=== PATIENT | male | born 1995 | race Caucasian/White ===

== ENCOUNTER 2020-02-25 10:52 | Emergency (ER) | payer MEDICAID, SELFPAY ==
--- NOTE | ~2020-02-25 | XR_ITS ---
EXAMINATION: XR chest 2V DATE: 02/25/2020 11:26 INDICATION: Cough TECHNIQUE: PA and lateral views of the chest are obtained. COMPARISON: None available FINDINGS: The lungs are free of acute opacities. There is no pleural effusion or pneumothorax. The ca rdiomediastinal silhouette is normal. The visualized bones and soft tissues are unremarkable. IMPRESSION: 1. No acute cardiopulmonary abnormality. Reviewed, dictated and finalized at location A.
[2020-02-25 11:00] VITALS: BP 130/84; PULSE 92; RESP 16; TEMP 36.9; O2SAT 100
--- NOTE | 2020-02-25 11:33 | ED.URI ---
HPI - URI/Sore Throat General Chief Complaint: Upper Respiratory Infection Stated Complaint: Chest pain/shortness of breath Time Seen by Provider: 02/25/20 11:29 Source: patient and RN notes reviewed Mode of arrival: ambulatory Limitations: no limitations History of Present Illness HPI Narrative: Patient presents today complaining of a 10 to 14-day history of cough that is slightly worse since onset. He also noted rhinorrhea, subjective fever, and congestion initially, but these have resolved.He was initially seen at the [facility] ER 7 to 10 days ago, placed on azithromycin and dexamethasone. States these medications provided no relief. He has tried no [id number] medication for his symptoms. He does report some mild shortness of breath intermittently. No history of asthma or COPD. Patient smokes 0.5 packs/day for the past 14 years. He also smokes marijuana.In the ER he had a COVID-19 test done, and it was negative.He was told by the ER that if his symptoms did not get better, he needed to go to an urgent care. MD elicited complaint: cough Related Data Allergies Allergy/AdvReac Type Severity Reaction Status Date / Time No Known Allergies Allergy Verified 02/25/20 11:15 Review of Systems Review of Systems: Narrative: CONSTITUTIONAL: Denies body aches, fever, chills, or sweats. EYES: Denies visual changes, redness, or discharge. ENT: Denies rhinorrhea, congestion, sore throat, or otalgia. CARDIOVASCULAR: Denies chest pain, palpitations, or edema. RESPIRATORY: +Cough, shortness of breath GASTROINTESTINAL: Denies abdominal pain, nausea, vomiting, or diarrhea. GENITOURINARY: Denies dysuria or hematuria. SKIN: Denies rash, itching, or wounds. MUSCULOSKELETAL: Denies back pain, joint pain, or myalgia. NEUROLOGIC: Denies headache, numbness, tingling, or weakness. PSYCH: Denies depression or anxiety. [facility] Social History Social History (Updated 02/25/20 @ 11:35 by Mariela Rojas, [facility], ) Smoking packs per day: 0.5 Smoking cigarettes per day: 10.0 Years smoked: 14 Smoking pack-years: 7.00 Smoking status: Current every day smoker Substance use: current Substance use type: marijuana Comments At time of signature, I have reviewed and agree with nursing past medical, surgical, social and family history unless otherwise noted. Please see nursing chart for further information. There is no relevant family history pertinent to the presenting complaint Exam Narrative: Exam Narrative: GENERAL: Well-appearing, well-nourished, and in no acute distress. HEAD: Normocephalic, atraumatic. EYES: EOMI. No redness or drainage. Conjunctivae normal. ENT: Mucous membranes pink and moist. Nares clear. No rhinorrhea. TMs normal bilaterally. Throat normal. Uvula midline. NECK: Normal AROM. Supple. No lymphadenopathy. CHEST: No respiratory distress. Slightly diminished in the right lower lobe, otherwise clear. Frequent mild dry cough HEART: Regular rate and rhythm. No murmur appreciated. Normal peripheral pulses. ABDOMEN: Soft, nontender, nondistended, normal active bowel sounds. MUSCULOSKELETAL: No bony tenderness. EXTREMITIES: Normal range of motion. No edema. SKIN: Warm, dry, no rash. Capillary refill normal. Normal skin turgor. NEURO: No focal deficits. Alert and oriented x3. Gait steady. PSYCH: Normal affect. No signs of depression or anxiety. Course Vital Signs Vital signs: Vital Signs Temperature 98.4 F 02/25/20 11:00 Pulse Rate 92 02/25/20 11:00 Respiratory Rate 16 02/25/20 11:00 Blood Pressure 130/84 02/25/20 11:00 Pulse Oximetry 100 02/25/20 11:00 Temperature 98.4 F 02/25/20 11:00 Pulse Rate 92 02/25/20 11:00 Respiratory Rate 16 02/25/20 11:00 Blood Pressure 130/84 02/25/20 11:00 Pulse Oximetry 100 02/25/20 11:00 Reviewed. Pt has been instructed to follow up with his PCP regarding his elevated blood pressure today. MDM - URI/Sore Throat Differential D
== END 2020-02-25 11:45 | disposition home or self-care (01) ==
PROVIDERS: Emergency Provider Nurse Practitioner
DX: J40 Bronchitis, not specified as acute or chronic (principal); F17.210 Nicotine dependence, cigarettes, uncomplicated
CPT/HCPCS: 71046; 99213; G0463

== ENCOUNTER 2020-09-30 12:05 | Emergency (ER) | payer OTHER, SELFPAY ==
[2020-09-30 12:23] VITALS: BP 131/98; PULSE 93; RESP 16; TEMP 36.6; O2SAT 98
--- NOTE | 2020-09-30 13:06 | ED.GENADULT ---
HPI - General Adult General Chief complaint: Unspecified Stated complaint: Std check Time Seen by Provider: 09/30/20 12:48 Source: patient and RN notes reviewed Mode of arrival: ambulatory Limitations: no limitations History of Present Illness HPI narrative: Patient presents today requesting STD testing. States he was told in the last 1 to 2 months that 2 of his partners were positive for gonorrhea, chlamydia, and trichomonas. Until today, he has not sought treatment or testing. He did continue to have unprotected intercourse with other partners. He denies any current symptoms to include penile discharge, dysuria, hematuria, scrotal pain or swelling, rashes or sores. Patient is an abuser and has been for the past approximately 10 years. He shares needles with people that he knows to have hepatitis C and is wondering whether or not he also has hepatitis C. He has just made an appointment with his PCP on Monday to possibly get some blood work done. complaint: STD testing Related Data Allergies Allergy/AdvReac Type Severity Reaction Status Date / Time diphenhydramine Allergy Hives Verified 09/30/20 12:20 [From Vivek] Review of Systems Review of Systems: Narrative: CONSTITUTIONAL: Denies body aches, fever, chills, or sweats. EYES: Denies visual changes, redness, or discharge. ENT: Denies rhinorrhea, congestion, sore throat, or otalgia. CARDIOVASCULAR: Denies chest pain, palpitations, or edema. RESPIRATORY: Denies cough or dyspnea. GASTROINTESTINAL: Denies abdominal pain, nausea, vomiting, or diarrhea. GENITOURINARY: Denies dysuria or hematuria. SKIN: Denies rash, itching, or wounds. MUSCULOSKELETAL: Denies back pain, joint pain, or myalgia. NEUROLOGIC: Denies headache, numbness, tingling, or weakness. PSYCH: Denies depression or anxiety. [facility] Social History Social History (Updated 09/30/20 @ 13:39 by Mariela Rojas, [facility], ) Smoking packs per day: 0.5 Smoking cigarettes per day: 10.0 Years smoked: 14 Smoking pack-years: 7.00 Smoking status: Current every day smoker Substance use: current Substance use type: marijuana and IV drugs Exam Narrative: Exam Narrative: GENERAL: Well-appearing, well-nourished, and in no acute distress. HEAD: Normocephalic, atraumatic. EYES: EOMI. No redness or drainage. Conjunctivae normal. ENT: Mucous membranes pink and moist. NECK: Normal AROM. CHEST: No respiratory distress. : deferred. EXTREMITIES: Normal range of motion. No edema. SKIN: Warm, dry, no rash. Capillary refill normal. Normal skin turgor. NEURO: No focal deficits. Alert and oriented x3. Gait steady. PSYCH: Normal affect. No signs of depression or anxiety. Course Vital Signs Vital signs: Vital Signs Temperature 98 F 09/30/20 12:23 Pulse Rate 93 09/30/20 12:23 Respiratory Rate 16 09/30/20 12:23 Blood Pressure 131/98 H 09/30/20 12:23 Pulse Oximetry 98 09/30/20 12:23 Temperature 98 F 09/30/20 12:23 Pulse Rate 93 09/30/20 12:23 Respiratory Rate 16 09/30/20 12:23 Blood Pressure 131/98 H 09/30/20 12:23 Pulse Oximetry 98 09/30/20 12:23 Reviewed. Pt has been instructed to follow up with his PCP regarding his elevated blood pressure today. Medical Decision Making Differential Diagnosis Differential Diagnosis: Gonorrhea, chlamydia, trichomonas, syphilis, hepatitis C, HIV Vital Signs Vital Signs: Vital Signs Temperature 98 F 09/30/20 12:23 Pulse Rate 93 09/30/20 12:23 Respiratory Rate 16 09/30/20 12:23 Blood Pressure 131/98 H 09/30/20 12:23 Pulse Oximetry 98 09/30/20 12:23 Temperature 98 F 09/30/20 12:23 Pulse Rate 93 09/30/20 12:23 Respiratory Rate 16 09/30/20 12:23 Blood Pressure 131/98 H 09/30/20 12:23 Pulse Oximetry 98 09/30/20 12:23 Critical Care Time Critical Care Time Critical Care Time: No Discharge Plan Discharge Clinical Impression: Concern about STD in male without diagnosis Patient Di
[2020-09-30] MEDS: AZITHROMYCIN 250 MG TABLET 1000 MG PO (13:08)
[2020-09-30] MEDS: LIDOCAINE HCL 1% LOCAL INJ 20 ML VIAL IM (13:09)
[2020-09-30] MEDS: cefTRIAXone 250 MG VIAL 500 MG IM (13:09)
== END 2020-09-30 13:28 | disposition home or self-care (01) ==
PROVIDERS: Emergency Provider Nurse Practitioner
DX: Z20.2 Contact with and (suspected) exposure to infections with a predominantly sexual mode of transmission (principal); F17.210 Nicotine dependence, cigarettes, uncomplicated
CPT/HCPCS: 87491; 87591; 87661; 96372; 99213; A9270; G0463; J0696

== ENCOUNTER 2021-02-26 08:23 | Emergency (ER) | payer OTHER, SELFPAY ==
--- NOTE | 2021-02-26 08:30 | ED.SKABFB ---
HPI - Skin/Abscess/Foreign Bdy General Chief complaint: Skin/Abscess/Foreign Body Stated complaint: poison sumac or jose Time Seen by Provider: 02/26/21 08:35 Source: patient and RN notes reviewed Mode of arrival: ambulatory Limitations: no limitations History of Present Illness HPI narrative: 25 old male presents concern for possible poison jose. Reports itchy rash to his bilateral hands, right torso, genital area. Reports he was weed eating 4-5 days ago and subsequently broke out in the rash. Reports he has tried [id number] remedies such as calamine lotion with little relief. He denies swollen lips, swollen tongue. Reports feeling of wheezing. Reports itching eyes. Denies current dyspnea MD complaint: rash Related Data Home Medications Medication Instructions Recorded Confirmed dextroamphetamine-amphetamine 20 mg PO BID 02/26/21 02/26/21 Allergies Allergy/AdvReac Type Severity Reaction Status Date / Time diphenhydramine Allergy Hives Verified 02/26/21 08:35 [From Benadryl] Review of Systems Review of Systems: CONSTITUTIONAL: Denies malaise, chills, sweats, or fever. EYES: Denies visual changes, redness, or discharge. Reports bilateral itching eyes ENT: Denies rhinorrhea, congestion, swollen lips, swollen tongue. CARDIOVASCULAR: Denies chest pain, palpitations, or edema. RESPIRATORY: Denies cough or dyspnea.. Reports wheezing GASTROINTESTINAL: Denies abdominal pain, nausea, vomiting, diarrhea SKIN: Reports itchy rash on bilateral hands, torso, and genital area All systems reviewed & are unremarkable except as noted in HPI and below PMFSH Social History Social History (Updated 09/30/20 @ 13:39 by Mariela Rojas, [facility], ) Smoking packs per day: 0.5 Smoking cigarettes per day: 10.0 Years smoked: 14 Smoking pack-years: 7.00 Smoking status: Current every day smoker Substance use: current Substance use type: marijuana and IV drugs Comments At time of signature, agree with nursing past medical, surgical, social and family history. There is no relevant family history pertinent to the presenting complaint Exam Narrative: GENERAL: Well-appearing, well-nourished, and in no acute distress. HEAD: Normocephalic, atraumatic. EYES: PERRLA, conjunctivae clear, sclera clear, no rash noted in or around the eyes ENT: Mucous membranes moist. Oropharynx without edema or lesions, mild erythema noted NECK: Supple. No lymphadenopathy CHEST: Clear to auscultation. No respiratory distress. No wheezing, stridor noted, breath sounds equal bilaterally. Speaks in full sentences HEART: Regular rate and rhythm. SKIN: Warm, dry. Patches of papular vesicular rash noted to bilateral hands, patch on the torso. NEURO: Alert and oriented x3. PSYCH: Normal mood and affect Course Course Emergency Course: Patient is aware of diagnosis, understands and agrees to treatment plan. Anticipatory guidance given. Patient agrees to follow-up as directed and is aware of reasons to seek care at the emergency department. Portions of this record may have been created with voice recognition software Vital Signs Vital signs: Reviewed. MDM - Skin/Abscess/Foreign Bdy MDM Narrative Medical decision making narrative: Does not appear at this time to be erythema multiforme, bullous, SJS, TEN; no evidence at this time to suggest RMSF, endocarditis or Lyme disease; patient looks well, nontoxic and is tolerating oral intake; no neurologic signs or symptoms; no headache, photophobia or neck pain; afebrile; appropriate for initial outpatient treatment; discussed the importance of follow-up, patient agrees; question, viral exanthema, contact dermatitis, allergic dermatitis, eczema, urticaria, scabies, shingles. No soft palate or uvula edema, no tongue, lip edema or other mucosal involvement, no respiratory compromise, no stridor, no wheezing, no wheezing, no history of syncope, no hypotension, no nausea, vomiting, or diarrhea. Instructed iam
[2021-02-26 08:32] VITALS: BP 119/76; PULSE 75; RESP 18; TEMP 37.2; O2SAT 100
== END 2021-02-26 08:54 | disposition home or self-care (01) ==
PROVIDERS: Emergency Provider Nurse Practitioner; PCP Nurse Practitioner
DX: L23.7 Allergic contact dermatitis due to plants, except food (principal); F17.210 Nicotine dependence, cigarettes, uncomplicated
CPT/HCPCS: 96372; 99213; G0463; J1100

== ENCOUNTER 2021-03-17 08:49 | Emergency (ER) | payer OTHER, SELFPAY ==
[2021-03-17 08:56] VITALS: BP 131/85; PULSE 92; RESP 20; TEMP 37.7; O2SAT 100
--- NOTE | 2021-03-17 09:43 | ED.URI ---
HPI - URI/Sore Throat General Chief Complaint: Upper Respiratory Infection Stated Complaint: congestion fever runny nose Source: patient Mode of arrival: ambulatory Limitations: no limitations History of Present Illness HPI Narrative: Patient is a 25-year-old male who presents complaining of fever, chills, body aches, cough, congestion and rhinorrhea x4 to 5 days. Patient denies known exposure to Covid. Patient is not vaccinated for Covid. Patient reports taking intermittent [id number]-hcquafd meds with limited relief. Patient denies significant medical history. MD elicited complaint: fever, cough, sore throat, rhinorrhea and nasal congestion Related Data Home Medications Medication Instructions Recorded Confirmed dextroamphetamine-amphetamine 20 mg PO BID 02/26/21 03/17/21 buprenorphine-naloxone [Zubsolv] 1 tablet SUBLINGUAL DAILY 03/17/21 03/17/21 Allergies Allergy/AdvReac Type Severity Reaction Status Date / Time diphenhydramine Allergy Hives Verified 03/17/21 09:24 [From Benadryl] Review of Systems Review of Systems: CONSTITUTIONAL: Reports fever, chills and body aches EYES: Denies visual changes, redness, or discharge. ENT: Reports rhinorrhea, congestion, and sore throat. CARDIOVASCULAR: Denies chest pain, palpitations, or edema. RESPIRATORY: Denies cough or dyspnea. GASTROINTESTINAL: Denies abdominal pain, nausea, vomiting, or diarrhea. GENITOURINARY: Denies dysuria or hematuria. SKIN: Denies rash or itching. MUSCULOSKELETAL: Denies back pain, joint pain, or myalgia. NEUROLOGIC: Denies headache, numbness, dizziness, or weakness. PSYCHIATRIC: Denies anxiety or depression. [facility] Social History Social History Smoking packs per day: 0.5 Smoking cigarettes per day: 10.0 Years smoked: 14 Smoking pack-years: 7.00 Smoking status: Current every day smoker Substance use: current Substance use type: marijuana and IV drugs Comments At the time of signature, I have reviewed and agree with nursing past medical, surgical, social, and family history unless otherwise noted. Please see nursing chart for further information. There is no relevant family history pertinent to the presenting complaint. Exam Narrative: GENERAL: Ill-appearing but in no acute distress. HEAD: Normocephalic, atraumatic. EYES: EOMI. No redness or drainage. Conjunctiva are normal. ENT: Mucous membranes pink and moist. Nares clear. No rhinorrhea. Throat with mild erythema and edema,. Uvula midline. NECK: AROM. Supple. No lymphadenopathy. CHEST: No respiratory distress. Clear to auscultation. HEART: Regular rate and rhythm. EXTREMITIES: Normal range of motion. No edema. SKIN: Warm, dry, no rash. NEURO: No focal deficits. Alert and oriented x3. Gait steady. PSYCH: Normal affect. No signs of depression or anxiety. Course Vital Signs Vital signs: Vital Signs Temperature 37.7 C H 03/17/21 08:56 Pulse Rate 92 03/17/21 08:56 Respiratory Rate 20 03/17/21 08:56 Blood Pressure 131/85 03/17/21 08:56 Pulse Oximetry 100 03/17/21 08:56 Temperature 37.7 C H 03/17/21 08:56 Pulse Rate 92 03/17/21 08:56 Respiratory Rate 20 03/17/21 08:56 Blood Pressure 131/85 03/17/21 08:56 Pulse Oximetry 100 03/17/21 08:56 Reviewed. Patient has been instructed to follow-up with his PCP regarding his blood pressure. MDM - URI/Sore Throat MDM Narrative Medical decision making narrative: Patient's rapid Covid is negative at this time. PCR sent. Discussed with patient the need for quarantine until PCR results are confirmed. Patient agrees with plan of care. Patient educated on symptomatic treatment. Differential Diagnosis Differential diagnosis: Likely upper respiratory infection, sinusitis, viral infection, pharyngitis and other (Covid) Critical Care Time Critical Care Time Critical Care Time: No Discharge Plan Discharge Clinical Impression: Upper
[2021-03-18 20:43] LABS: SARS-CoV-2 RNA PCR Negative
== END 2021-03-17 09:50 | disposition home or self-care (01) ==
PROVIDERS: Emergency Provider Nurse Practitioner; PCP Nurse Practitioner
DX: J06.9 Acute upper respiratory infection, unspecified (principal); Z20.822 Contact with and (suspected) exposure to COVID-19; F17.210 Nicotine dependence, cigarettes, uncomplicated
CPT/HCPCS: 87426; 99213; C9803; G0463; U0003; U0005

== ENCOUNTER 2021-04-26 18:39 | Emergency (ER) | payer OTHER, SELFPAY ==
[2021-04-26 18:46] VITALS: BP 126/70; PULSE 78; RESP 16; TEMP 36.9; O2SAT 99
[2021-04-26 18:55] VITALS: BP 126/70; PULSE 78; RESP 16; TEMP 36.9; O2SAT 99
--- NOTE | 2021-04-26 19:49 | ED.SKABFB ---
HPI - Skin/Abscess/Foreign Bdy General Chief complaint: Skin/Abscess/Foreign Body Stated complaint: Allergic Reaction Time Seen by Provider: 04/26/21 19:49 Source: patient and RN notes reviewed Mode of arrival: ambulatory Limitations: no limitations History of Present Illness HPI narrative: 25-year-old male presents with concern for rash. 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 He denies any swollen lips, swollen tongue, trouble breathing. Denies any intervention. He reports he had poison jose approximately 6 to 8 weeks ago and was treated with steroids successfully. MD complaint: rash Related Data Home Medications Medication Instructions Recorded Confirmed dextroamphetamine-amphetamine 20 mg PO BID 02/26/21 04/26/21 buprenorphine-naloxone [Zubsolv] 1 tablet SUBLINGUAL DAILY 03/17/21 04/26/21 Allergies Allergy/AdvReac Type Severity Reaction Status Date / Time diphenhydramine Allergy Hives Verified 04/26/21 18:53 [From Vivek] Review of Systems Review of Systems: CONSTITUTIONAL: Denies malaise, chills, sweats, or fever. EYES: Denies visual changes, redness, or discharge. Reports rash on eyelids ENT: Denies rhinorrhea, congestion, swollen lips, swollen tongue CARDIOVASCULAR: Denies chest pain, palpitations, or edema. RESPIRATORY: Denies cough or dyspnea. GASTROINTESTINAL: Denies abdominal pain, nausea, vomiting, diarrhea SKIN: Reports itchy rash on bilateral arms, torso, face MUSCULOSKELETAL: Denies myalgia. All systems reviewed & are unremarkable except as noted in HPI and below PMFSH Social History Social History Smoking packs per day: 0.5 Smoking cigarettes per day: 10.0 Years smoked: 14 Smoking pack-years: 7.00 Smoking status: Current every day smoker Substance use: current Substance use type: marijuana and IV drugs Comments At time of signature, agree with nursing past medical, surgical, social and family history. There is no relevant family history pertinent to the presenting complaint Exam Narrative: GENERAL: Well-appearing, well-nourished, and in no acute distress. HEAD: Normocephalic, atraumatic. EYES: PERRLA, conjunctivae clear, sclera clear, and EOMI. ENT: Mucous membranes moist. Oropharynx without edema, erythema or lesions. NECK: Supple. No lymphadenopathy CHEST: Clear to auscultation. No respiratory distress. HEART: Regular rate and rhythm. SKIN: Warm, dry. Generalized scattered papular vesicular rash NEURO: Alert and oriented x3. PSYCH: Normal mood and affect Course Course Emergency Course: Patient is aware of diagnosis, understands and agrees to treatment plan. Anticipatory guidance given. Patient agrees to follow-up as directed and is aware of reasons to seek care at the emergency department. Portions of this record may have been created with voice recognition software Vital Signs Vital signs: Vital Signs Temperature 98.4 F 04/26/21 18:46 Pulse Rate 78 04/26/21 18:46 Respiratory Rate 16 04/26/21 18:46 Blood Pressure 126/70 04/26/21 18:46 Pulse Oximetry 99 04/26/21 18:46 Temperature 98.4 F 04/26/21 18:55 Pulse Rate 78 04/26/21 18:55 Respiratory Rate 16 04/26/21 18:55 Blood Pressure 126/70 04/26/21 18:55 Pulse Oximetry 99 04/26/21 18:55 Reviewed. MDM - Skin/Abscess/Foreign Bdy MDM Narrative Medical decision making narrative: Does not appear at this time to be erythema multiforme, bullous, SJS, TEN; no evidence at this time to suggest RMSF, endocarditis or Lyme disease; patient looks well, nontoxic and is tolerating oral intake; no neurologic signs or symptoms; no headache, photophobia or neck pain; afebrile; appropriate for initial outpatient treatment; discussed the importance of follow-up, patient agrees; question, viral exanthema, contact dermatitis, allergic dermatitis, eczema, urticaria. No soft palate
[2021-04-26] MEDS: methylPREDNISolone SOD SUCC 125 MG VIAL IM (20:05)
== END 2021-04-26 20:25 | disposition home or self-care (01) ==
PROVIDERS: Emergency Provider Nurse Practitioner; PCP Nurse Practitioner
DX: L25.5 Unspecified contact dermatitis due to plants, except food (principal); F17.210 Nicotine dependence, cigarettes, uncomplicated; I25.2 Old myocardial infarction
CPT/HCPCS: 96372; 99213; G0463; J2930

== ENCOUNTER 2021-05-07 10:25 | Emergency (ER) | payer OTHER, SELFPAY ==
--- NOTE | 2021-05-07 10:28 | ED.SKABFB ---
HPI - Skin/Abscess/Foreign Bdy General Chief complaint: Skin/Abscess/Foreign Body Stated complaint: Rash Time Seen by Provider: 05/07/21 10:45 Source: patient and RN notes reviewed Mode of arrival: ambulatory Limitations: no limitations History of Present Illness HPI narrative: 25-year-old male presents with concern for intractable poison jose rash. Reports the rash started several weeks ago he has been through 2 rounds of treatment which included a steroid injection followed by 4 days of steroid each time. Reports the rash will greatly improve but not resolved while on the treatment, then the rash returns after the treatment is complete. He denies any trouble breathing, swollen lips, swollen tongue. Denies using any [id number] treatments. Reports he has washed all of his clothes thoroughly, has washed his skin with Berta dish soap and has been using gentle bath products. Reports a history of hard to treat poison jose infection. Reports some of the rash areas are becoming slightly tender and swollen. MD complaint: rash Related Data Home Medications Medication Instructions Recorded Confirmed dextroamphetamine-amphetamine 20 mg PO BID 02/26/21 05/07/21 buprenorphine-naloxone [Zubsolv] 1 tablet SUBLINGUAL DAILY 03/17/21 05/07/21 Allergies Allergy/AdvReac Type Severity Reaction Status Date / Time diphenhydramine Allergy Hives Verified 05/07/21 10:39 [From Vivek] Review of Systems Review of Systems: CONSTITUTIONAL: Denies malaise, chills, sweats, or fever. EYES: Denies visual changes, redness, or discharge. ENT: Denies swollen lips, swollen tongue CARDIOVASCULAR: Denies chest pain, palpitations, or edema. RESPIRATORY: Denies cough or dyspnea. SKIN: Reports itchy rash with some areas of tenderness and redness. MUSCULOSKELETAL: Denies myalgia. All systems reviewed & are unremarkable except as noted in HPI and below [facility] Social History Social History Smoking packs per day: 0.5 Smoking cigarettes per day: 10.0 Years smoked: 14 Smoking pack-years: 7.00 Smoking status: Current every day smoker Substance use: current Substance use type: marijuana and IV drugs Comments At time of signature, agree with nursing past medical, surgical, social and family history. There is no relevant family history pertinent to the presenting complaint Exam Narrative: GENERAL: Well-appearing, well-nourished, and in no acute distress. HEAD: Normocephalic, atraumatic. EYES: PERRLA, conjunctivae clear, and EOMI. ENT: Mucous membranes moist. Oropharynx without edema, erythema or lesions. NECK: Supple. No lymphadenopathy CHEST: Clear to auscultation. No respiratory distress. HEART: Regular rate and rhythm. SKIN: Warm, dry. Patches of erythema and edema scattered on the arms and legs, area noted around the right eye, not including the sclera or conjunctivae NEURO: Alert and oriented x3. PSYCH: Normal mood and affect Course Course Emergency Course: Patient is aware of diagnosis, understands and agrees to treatment plan. Anticipatory guidance given. Patient agrees to follow-up as directed and is aware of reasons to seek care at the emergency department. Portions of this record may have been created with voice recognition software Vital Signs Vital signs: Reviewed. MDM - Skin/Abscess/Foreign Bdy MDM Narrative Medical decision making narrative: Does not appear at this time to be erythema multiforme, bullous, SJS, TEN; no evidence at this time to suggest RMSF, endocarditis or Lyme disease; patient looks well, nontoxic and is tolerating oral intake; no neurologic signs or symptoms; no headache, photophobia or neck pain; afebrile; appropriate for initial outpatient treatment; discussed the importance of follow-up, patient agrees; question, viral exanthema, contact dermatitis, allergic dermatitis, eczema, urticaria, cellulitis. No soft palate or uvula edema, no tongue,
[2021-05-07 10:32] VITALS: BP 130/86; PULSE 83; RESP 14; TEMP 36.9; O2SAT 98
[2021-05-07 10:40] VITALS: BP 130/86; PULSE 83; RESP 14; TEMP 36.9; O2SAT 98
== END 2021-05-07 10:59 | disposition home or self-care (01) ==
PROVIDERS: Emergency Provider Nurse Practitioner; PCP Nurse Practitioner
DX: L23.7 Allergic contact dermatitis due to plants, except food (principal); F17.210 Nicotine dependence, cigarettes, uncomplicated; I25.2 Old myocardial infarction
CPT/HCPCS: 99213; G0463

== ENCOUNTER 2021-05-26 18:11 | Emergency (ER) | payer OTHER, SELFPAY ==
[2021-05-26 18:18] VITALS: BP 127/71; PULSE 100; RESP 16; TEMP 37; O2SAT 99
--- NOTE | 2021-05-26 18:20 | ED.URI ---
HPI - URI/Sore Throat General Chief Complaint: Upper Respiratory Infection Stated Complaint: sore throat Time Seen by Provider: 05/26/21 18:38 Source: patient and RN notes reviewed Mode of arrival: ambulatory Limitations: no limitations History of Present Illness HPI Narrative: 25-year-old male presents with concern for sore throat that started today. He reports 2-week history of sinus congestion, pressure, drainage. Reports general malaise. Reports sweating. Reports taking Advil with no relief. Reports thick nasal and posterior nasal drainage. Denies cough, shortness of breath, nausea, vomiting, diarrhea. MD elicited complaint: sore throat Related Data Home Medications Medication Instructions Recorded Confirmed dextroamphetamine-amphetamine 20 mg PO BID 02/26/21 05/26/21 buprenorphine-naloxone [Zubsolv] 1 tablet SUBLINGUAL DAILY 03/17/21 05/26/21 buprenorphine-naloxone [Zubsolv] 2.9 tablet SUBLINGUAL DAILY 05/26/21 05/26/21 Allergies Allergy/AdvReac Type Severity Reaction Status Date / Time diphenhydramine Allergy Hives Verified 05/07/21 10:39 [From Vivek] Review of Systems Review of Systems: CONSTITUTIONAL: Denies malaise, chills, sweats, or fever. EYES: Denies visual changes, redness, or discharge. ENT: Reports rhinorrhea, congestion, and sore throat. CARDIOVASCULAR: Denies chest pain, palpitations, or edema. RESPIRATORY: Denies cough. Denies dyspnea. GASTROINTESTINAL: Denies abdominal pain, nausea, vomiting, diarrhea SKIN: Denies rash or itching. MUSCULOSKELETAL: Denies myalgia. NEUROLOGIC: Denies headache. All systems reviewed & are unremarkable except as noted in HPI and below PMFSH Social History Social History Smoking packs per day: 0.5 Smoking cigarettes per day: 10.0 Years smoked: 14 Smoking pack-years: 7.00 Smoking status: Current every day smoker Substance use: current Substance use type: marijuana and IV drugs Comments At time of signature, agree with nursing past medical, surgical, social and family history. There is no relevant family history pertinent to the presenting complaint Exam Narrative: GENERAL: Well-appearing, well-nourished, and in no acute distress. HEAD: Normocephalic EYES: PERRLA, conjunctivae clear ENT: Nares clear, turbinates edematous and erythematous,. Discharge. Mucous membranes moist. TM pearly osullivan with dull light reflex bilaterally; no tragal tenderness. Oropharynx erythematous without lesions. Tonsils enlarged and without exudate, no drooling, no hoarseness, no trismus, uvula midline. NECK: Supple. No lymphadenopathy CHEST: Clear to auscultation, breath sounds equal. No wheezing, rhonchi, rales, or stridor. No respiratory distress, speaks in full sentences. HEART: Regular rate and rhythm. No murmur heard. SKIN: Warm, dry, no rash. NEURO: Alert and oriented x3. PSYCH: Normal mood and affect Course Course Emergency Course: Patient is aware of diagnosis, understands and agrees to treatment plan. Anticipatory guidance given. Patient agrees to follow-up as directed and is aware of reasons to seek care at the emergency department. Portions of this record may have been created with voice recognition software Vital Signs Vital signs: Reviewed. MDM - URI/Sore Throat MDM Narrative Medical decision making narrative: Differential diagnosis considered: [place] virus, strep pharyngitis, allergic rhinitis, upper respiratory tract infection, sinusitis, rhinosinusitis, nasopharyngitis. viral pharyngitis, otitis media, otitis externa, pneumonia, bronchitis, viral cough syndrome, viral syndrome, and influenza. Exam findings show no acute concerns or changes; patient is non-toxic appearing and is in no distress. Patient is appropriate for outpatient treatment and follow-up. Critical Care Time Critical Care Time Critical Care Time: No Discharge Plan Discharge Clinical Impression: Acute bacterial sinusiti
== END 2021-05-26 18:50 | disposition home or self-care (01) ==
PROVIDERS: Emergency Provider Nurse Practitioner; PCP Nurse Practitioner
DX: J01.90 Acute sinusitis, unspecified (principal); F17.210 Nicotine dependence, cigarettes, uncomplicated
CPT/HCPCS: 87081; 87880; 99213; G0463

== ENCOUNTER 2021-07-11 13:14 | Emergency (ER) | payer OTHER, SELFPAY ==
[2021-07-11 13:23] VITALS: BP 119/70; PULSE 77; RESP 16; TEMP 36.7; O2SAT 100
--- NOTE | 2021-07-11 15:27 | ED.SKABFB ---
HPI - Skin/Abscess/Foreign Bdy General Chief complaint: Skin/Abscess/Foreign Body Stated complaint: poison jose Time Seen by Provider: 07/11/21 15:27 Source: patient, RN notes reviewed and old records reviewed Mode of arrival: ambulatory Limitations: no limitations History of Present Illness HPI narrative: 25 year old male presents to [facility] care with complaints of 2 day history of red rash to his nose, above lips, chin. left upper eyelid and forehead, abdomen, arms and genitalia which is itchy. 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 Patient is allergic to Benadryl so has not taken anything for the itching, denies any fevers chills or sweats or any other symptoms. He has some swelling and rash noted on the left upper eyelid, patient denies any sharp pain or visual changes to left eye. MD complaint: rash Onset (ago): day(s) (2) Related Data Home Medications Medication Instructions Recorded Confirmed dextroamphetamine-amphetamine 20 mg PO BID 02/26/21 07/11/21 buprenorphine-naloxone [Zubsolv] 1 tablet SUBLINGUAL DAILY 03/17/21 07/11/21 buprenorphine-naloxone [Zubsolv] 2.9 tablet SUBLINGUAL DAILY 05/26/21 07/11/21 Allergies Allergy/AdvReac Type Severity Reaction Status Date / Time diphenhydramine Allergy Hives Verified 07/11/21 14:00 [From Benadryl] Review of Systems Review of Systems: CONSTITUTIONAL: Denies fever, chills, or sweats. EYES: Denies visual changes, redness, or discharge, swelling with red rash noted to left upper eyelid.. ENT: Denies rhinorrhea, congestion, sore throat, or otalgia. CARDIOVASCULAR: Denies chest pain, palpitations, or edema. RESPIRATORY: Denies cough or dyspnea. GASTROINTESTINAL: Denies abdominal pain, nausea, vomiting, or diarrhea. GENITOURINARY: Denies dysuria or hematuria. SKIN: positive for red raised itchy rash on face abdomen arm and genitalia. MUSCULOSKELETAL: Denies back pain, joint pain, or myalgia. NEUROLOGIC: Denies headache, numbness, or weakness. PSYCHIATRIC: Denies anxiety or depression. All systems reviewed & are unremarkable except as noted in HPI and below [facility] Past Medical History Medical History (Updated 07/12/21 @ 20:55 by Mary Grace Hayden NP) ADHD (attention deficit hyperactivity disorder) History of drug abuse Surgical History Surgical History (Updated 07/12/21 @ 20:51 by Mary Grace Hayden NP) No history of previous surgery Social History Social History (Updated 07/12/21 @ 20:54 by Mary Grace Hayden NP) Smoking packs per day: 0.5 Smoking cigarettes per day: 10.0 Years smoked: 12 Smoking pack-years: 6.00 Smoking status: Current every day smoker Tobacco type: e-cigarettes/vaping Additional smoking assessment comments: previous cigarette smoker now vapes Alcohol intake: unknown Substance use: former Substance use type: marijuana and IV drugs Last use: Clean for 8 months Living arrangements: with family Gender identity (if verbalized by the patient): Male Comments At time of signature, agree with nursing past medical, surgical, social and family history. There is no relevant family history pertinent to the presenting complaint Exam Narrative: GENERAL: Well-appearing, well-nourished, and in no acute distress. HEAD: Normocephalic, atraumatic. EYES: PERRLA and EOMI.swelling with red patchy raised rash noted to left upper eyelid, denies any visual changes or sharp pain to eye. ENT: Nares clear, no rhinorrhea or epistaxis. Mucous membranes moist.TM's normal with good light reflex, throat pink with no lesions or exudates no tonsil swelling or difficulty with swallowing. NECK: Supple.no lymphadenopathy CHEST: Clear to auscultation. No respiratory distress.No tachypnea SAO2 100% on room air. HEART: Regular rate and rhythm. No murmur heard. Normal peripheral pulses. ABDOMEN: Soft, nontender, nondistended, normal active bowel sounds. EXTREMITIES: Normal range of motion. No edema. SKIN: Warm, dry,
[2021-07-11] MEDS: methylPREDNISolone ACETATE 80 MG/ML VIAL IM (15:38)
== END 2021-07-11 15:58 | disposition home or self-care (01) ==
PROVIDERS: Emergency Provider Registered Nurse; PCP Nurse Practitioner
DX: L25.9 Unspecified contact dermatitis, unspecified cause (principal); F17.290 Nicotine dependence, other tobacco product, uncomplicated; F90.9 Attention-deficit hyperactivity disorder, unspecified type
CPT/HCPCS: 96372; 99213; G0463; J1040

== ENCOUNTER 2022-05-11 17:39 | Emergency (ER) | payer BC, OTHER, SELFPAY ==
[2022-05-11 17:49] VITALS: BP 131/77; PULSE 93; RESP 18; TEMP 37.7; O2SAT 100
--- NOTE | 2022-05-11 18:25 | ED.URI ---
HPI - URI/Sore Throat General Chief Complaint: Upper Respiratory Infection Stated Complaint: Sore Throat Time Seen by Provider: 05/11/22 18:25 History of Present Illness HPI Narrative: 26 y/o male presented for c/o sore throat, sinus pressure and subjective fever for 2 days. Denies sick contacts. Taking Motrin and DayQuil. Denies other symptoms. Related Data Home Medications Medication Instructions Recorded Confirmed dextroamphetamine-amphetamine 20 20 mg PO BID 02/26/21 05/11/22 mg tablet buprenorphine 2.9 mg-naloxone 0.71 2.9 tablet sublingual DAILY 05/26/21 05/11/22 mg sublingual tablet (Zubsolv) testosterone cypionate 200 mg/mL 200 mg IM 05/11/22 intramuscular oil Allergies Allergy/AdvReac Type Severity Reaction Status Date / Time diphenhydramine Allergy Hives Verified 05/11/22 18:16 [From Vivek] Review of Systems Review of Systems: CONSTITUTIONAL: Denies body aches, chills, or sweats. EYES: Denies visual changes, redness, or discharge. ENT: Per HPI CARDIOVASCULAR: Denies chest pain, palpitations, or edema. RESPIRATORY: Denies dyspnea. GASTROINTESTINAL: Denies abdominal pain, nausea, vomiting, or diarrhea. MUSCULOSKELETAL: Denies back pain, joint pain, or myalgia. NEUROLOGIC: Denies headache PMFSH Past Medical History Medical History ADHD (attention deficit hyperactivity disorder) History of drug abuse Surgical History Surgical History No history of previous surgery Social History Social History Smoking packs per day: 0.5 Smoking cigarettes per day: 10.0 Years smoked: 12 Smoking pack-years: 6.00 Smoking status: Current every day smoker Tobacco type: e-cigarettes/vaping Additional smoking assessment comments: previous cigarette smoker now vapes Alcohol intake: unknown Substance use: former Substance use type: marijuana and IV drugs Last use: Clean for 8 months Gender identity (if verbalized by the patient): Male Exam Narrative: GENERAL: Ill-appearing, no acute distress. EYES: conjunctivae clear ENT: Mucous membranes moist. TMs pearly osullivan with normal light reflex bilaterally; no tragal tenderness. Oropharynx erythematous Tonsillar swelling 3+ with exudate. No drooling, no hoarseness, no trismus, uvula midline. No tripod positioning, hot potato voice, or soft palate swelling. NECK: Supple. No lymphadenopathy CHEST: Clear to auscultation, breath sounds equal. No respiratory distress, speaks in full sentences. HEART: Regular rate and rhythm. No murmur heard. SKIN: Warm, dry, no rash. NEURO: Alert and oriented x3. Course Course Emergency Course: Patient is aware of diagnosis, understands and agrees to treatment plan. Anticipatory guidance given. Patient agrees to follow-up as directed and is aware of reasons to seek care at the emergency department. Portions of this record may have been created with voice recognition software Level of Care: Express Care Visit Vital Signs Vital signs: Vital Signs Temperature 99.8 F H 05/11/22 17:49 Pulse Rate 93 05/11/22 17:49 Respiratory Rate 18 05/11/22 17:49 Blood Pressure 131/77 05/11/22 17:49 Pulse Oximetry 100 05/11/22 17:49 Oxygen Delivery Room Air 05/11/22 17:49 Temperature 99.8 F H 05/11/22 17:49 Pulse Rate 93 05/11/22 17:49 Respiratory Rate 18 05/11/22 17:49 Blood Pressure 131/77 05/11/22 17:49 Pulse Oximetry 100 05/11/22 17:49 Oxygen Delivery Room Air 05/11/22 17:49 MDM - URI/Sore Throat MDM Narrative Medical decision making narrative: neg flu and strep result reviewed with pt. Will treat with amox based on PE. Advise supportive treatments. Patient is appropriate for outpatient treatment and follow-up. Differential Diagnosis Differential diagnosis: Likely upper respiratory i
== END 2022-05-11 18:54 | disposition home or self-care (01) ==
PROVIDERS: Emergency Provider Nurse Practitioner Family; PCP Nurse Practitioner
DX: J02.9 Acute pharyngitis, unspecified (principal); F17.210 Nicotine dependence, cigarettes, uncomplicated
CPT/HCPCS: 87081; 87804; 87880; 99213; G0463

== ENCOUNTER 2023-04-11 16:06 | Emergency (ER) | payer BC, OTHER, SELFPAY ==
[2023-04-11 16:31] VITALS: BP 134/85; PULSE 78; RESP 17; TEMP 36.9; O2SAT 99
--- NOTE | 2023-04-11 16:57 | ED.MALEGU ---
HPI - Male Genitourinary General Chief complaint: Urogenital-Male Stated complaint: infection on penis Time Seen by Provider: 04/11/23 16:52 Source: patient Mode of arrival: ambulatory Limitations: no limitations History of Present Illness HPI Narrative: Patient is a 27-year-old male who presents to the ED with complaint of a lesion to his penis. Patient reports he knicked the underside of his penis shaft a few days ago while shaving. He then noticed a lesion to the underside of his shaft today. He states he has had some drainage from the lesion. He thinks it may be staph infection. He does report pain and sensitivity to the lesions. Patient is currently sexually active. Denies penile discharge, dysuria, hematuria, fevers, abdominal pain, nausea, vomiting, testicular pain or swelling. Related Data Home Medications Medication Instructions Recorded Confirmed dextroamphetamine-amphetamine 20 20 mg PO BID 02/26/21 05/11/22 mg tablet buprenorphine 2.9 mg-naloxone 0.71 2.9 tablet sublingual DAILY 05/26/21 05/11/22 mg sublingual tablet (Zubsolv) testosterone cypionate 200 mg/mL 200 mg IM 05/11/22 intramuscular oil Allergies Allergy/AdvReac Type Severity Reaction Status Date / Time diphenhydramine Allergy Hives Verified 04/11/23 16:51 [From Vivek] Review of Systems Review of Systems: CONSTITUTIONAL: Denies fever, chills, or sweats. GASTROINTESTINAL: Denies abdominal pain, nausea, vomiting, or diarrhea. GENITOURINARY: See HPI. SKIN: See HPI. All systems reviewed & are unremarkable except as noted in HPI and below PMFSH Past Medical History Medical History ADHD (attention deficit hyperactivity disorder) History of drug abuse Surgical History Surgical History No history of previous surgery Social History Social History Smoking packs per day: 0.5 Smoking cigarettes per day: 10.0 Years smoked: 12 Smoking pack-years: 6.00 Smoking status: Current every day smoker Tobacco type: e-cigarettes/vaping Additional smoking assessment comments: previous cigarette smoker now vapes Alcohol intake: unknown Substance use: former Substance use type: marijuana and IV drugs Last use: Clean for 8 months Living arrangements: with family Gender identity (if verbalized by the patient): Male Exam Narrative: GENERAL: Well appearing, well-nourished, non-toxic, in no acute distress. HEAD: Normocephalic, atraumatic. NECK: Supple. No adenopathy, no masses. RESPIRATORY: Airway patent, respirations nonlabored. Clear to auscultation bilaterally, no rales, rhonchi, wheezing. CARDIOVASCULAR: Regular rate and rhythm without murmurs, rubs, or gallops. Peripheral pulses 2+ and equal bilaterally. GENITAL: Inferior aspect of penile shaft with several small ulcerated lesions, erythema directly surrounding ulcers, focal tenderness to palpation. 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 No large vesicles. No penile discharge. No testicular tenderness, erythema, swelling. MUSCULOSKELETAL: Moves all extremities. Strength/ROM intact without gross deformities. SKIN: Warm, dry, normal color. No rashes. NEURO: A&O X3. Speech clear. Cranial nerves II-XII grossly intact. Steady gait. No ataxic movements. PSYCHIATRIC: Appropriate mood and affect. Normal interaction. Course Vital Signs Vital signs: Vital Signs Temperature 98.4 F 04/11/23 16:31 Pulse Rate 78 04/11/23 16:31 Respiratory Rate 17 04/11/23 16:31 Blood Pressure 134/85 04/11/23 16:31 Pulse Oximetry 99 04/11/23 16:31 Oxygen Delivery Room Air 04/11/23 16:31 Temperature 98.4 F 04/11/23 16:31 Pulse Rate 78 04/11/23 16:31 Respiratory Rate 17 04/11/23 16:31 Blood Pressure 134/85 04/11/23 16:31 Pulse Oximetry 99 04/11/23 16:31 Oxyge
[2023-04-11 17:09] LABS: Appearance Urine Clear (Clear); Bilirubin Urine Negative (Negative); Blood Urine Negative (Negative); Color Urine Yellow (Yellow); Glucose Urine UA Negative (Negative); Ketones Urine Negative (Negative); Leukocyte Esterase Ur Negative LEU/UL (Negative); Nitrate Urine Negative (Negative); Protein Urine Negative (Negative); Specific Grav Ur 1.028 (1.001-1.035)
[2023-04-11 17:16] LABS: Add Urine Microscopic? NO
[2023-04-11] MEDS: valACYclovir HCL 500 MG TABLET 1000 MG PO (17:41)
[2023-04-11 18:14] LABS: Trichomonas Vag PCR NOT DETECTED (NOT DETECTE)
[2023-04-11 18:39] LABS: Chlamydia trachomatis NOT DETECTED (NOT DETECTE); Neisseria gonorrhoeae PCR NOT DETECTED (NOT DETECTE)
== END 2023-04-11 18:55 | disposition home or self-care (01) ==
PROVIDERS: Emergency Provider Physician Assistant; PCP Nurse Practitioner
DX: A60.01 Herpesviral infection of penis (principal); L98.8 Other specified disorders of the skin and subcutaneous tissue; F90.9 Attention-deficit hyperactivity disorder, unspecified type; F17.290 Nicotine dependence, other tobacco product, uncomplicated
CPT/HCPCS: 81003; 87255; 87491; 87591; 87661; 99283; A9270